=== PATIENT | female | born 1980 | race Caucasian/White ===

== ENCOUNTER 2019-07-09 10:53 | Outpatient (CLI) | payer OTHER, SELFPAY ==
[2019-07-09 13:37] LABS: Thyroid Stimulating Hormone 4.97 uIU/mL (0.36-3.74)
== END 2019-07-09 10:54 | disposition home or self-care (01) ==
LOC: CHSLAB 11:02
PROVIDERS: PCP Nurse Practitioner Family
DX: E89.0 Postprocedural hypothyroidism (principal); C73 Malignant neoplasm of thyroid gland
CPT/HCPCS: 36415; 84432; 84443; 86800

== ENCOUNTER 2019-11-22 13:51 | Outpatient (CLI) | payer OTHER, SELFPAY ==
--- NOTE | ~2019-11-22 | XR_ITS ---
XR foot LT 2V DATE: 11/22/2019 14:23 INDICATION: Left foot pain following injury 2 weeks ago TECHNIQUE: AP and lateral views COMPARISON: None FINDINGS: There is plantar and posterior calcaneal enthesopathy. No fracture, dislocation, periosteal reaction or bone destruction. Mild osteoarthritis at the first metatarsophalangeal joint. IMPRESSION: Calcaneal enthesopathy Mild osteoarthritis at first metatarsophalangeal joint Reviewed, dictated and finalized at location B.
[2019-11-22 14:09] LABS: Basophils Absolute Auto 0.04 K/mm3 (0.00-0.10); Basophils Percent Auto 0.3 % (0.0-1.0); Eosinophils Absolute Auto 0.42 K/mm3 (0.02-0.50); Eosinophils Percent Auto 3.3 % (1.0-6.0); Hematocrit 35.1 % (35.0-49.0); Hemoglobin 11.3 g/dL (12.0-15.0); Immature Granulocyte Absolute 0.05 K/mm3 (0.00-0.00); Immature Granulocyte Percent A 0.4 % (0.0-0.0); Lymphocytes Absolute Auto 1.52 K/mm3 (1.10-4.50); Lymphocytes Percent Auto 11.8 % (18.0-42.0); Mean Corpuscular HGB Conc 32.2 g/dL (32.0-36.0); Mean Corpuscular Volume 83.8 fL (78.0-102.0); Mean Platelet Volume 10.7 fl (9.2-11.8); Monocytes Absolute Auto 0.78 K/mm3 (0.10-0.90); Monocytes Percent Auto 6.1 % (2.0-11.0); Neutrophils Percent Auto 78.1 % (50.0-70.0); Platelet Count Result 286 K/mm3 (150-420); Red Blood Count 4.19 M/mm3 (4.20-5.40); White Blood Count 12.8 K/mm3 (4.8-10.8)
[2019-11-22 15:36] LABS: Alanine Aminotransferase 24 U/L (14-59); Albumin Level 3.8 g/dL (3.4-5.0); Alkaline Phosphatase 63 U/L (46-116); Anion Gap 14.1 mmol/L (7-16); Bilirubin,Total 0.2 mg/dL (0.00-1.00); Blood Urea Nitrogen 12 mg/dL (7-18); Calcium 8.5 mg/dL (8.5-10.1); Carbon Dioxide 25 mmol/L (21-32); Chloride 104 mmol/L (98-108); Cholesterol 191 mg/dL (0-200); Estimated Glomerular Filt Rate > 60; Glucose 103 mg/dL (70-99); HDL Direct 71 mg/dL (40-60); LDL Cholesterol Calculated 98 mg/dL (<130); Osmolality Calculated 287 mOsm/kg (285-295); Potassium 4.1 mmol/L (3.5-5.1); Sodium 139 mmol/L (136-145); Thyroid Stimulating Hormone 0.18 uIU/mL (0.36-3.74); Total Protein 7.4 g/dL (6.4-8.2); Triglycerides 110 mg/dL (0-150)
[2019-11-22 16:24] LABS: Aspartate Amino Transferase 19 U/L (15-37); Vitamin B12 344 pg/mL (193-986)
[2019-11-24 21:22] LABS: Vitamin D 25 Hydroxy 24 ng/mL (30-100)
[2019-11-24 21:42] LABS: Gliadin AB, IgG 3 Units (<20); Reticulin IgA Negative (Negative); TTG IGA AB 1 U/mL (<4)
[2019-11-26 05:34] LABS: Thyroglobulin <0.1 ng/mL (2.8-40.9); Thyroglobulin Antibodies <1 IU/mL (<=1)
== END 2019-11-22 13:52 | disposition home or self-care (01) ==
PROVIDERS: PCP Nurse Practitioner Family; Visit Provider Nurse Practitioner Family
DX: Z00.00 Encounter for general adult medical examination without abnormal findings (principal); R53.82 Chronic fatigue, unspecified; E89.0 Postprocedural hypothyroidism; C73 Malignant neoplasm of thyroid gland; M79.672 Pain in left foot
CPT/HCPCS: 36415; 73620; 80053; 80061; 82306; 82607; 83516; 84432; 84443; 85025; 86255; 86800

== ENCOUNTER 2020-07-10 13:40 | Outpatient (CLI) | payer OTHER, SELFPAY ==
--- NOTE | ~2020-07-10 | US_ITS ---
EXAMINATION: US pelvic complete w TV EXAM DATE: 07/10/2020 14:34 INDICATION: Pelvic and perineal pain. TECHNIQUE: Pelvic transabdominal and transvaginal sonogram was performed. There are multiple graysca le and Doppler images available for interpretation. There is no prior study for comparison. FINDINGS: Uterus measures 7.2 x 4.2 x 5.7 cm, is anteverted and morphologically normal. Endometrial stripe measures 9 mm, within normal limits. There are nabothian cysts. There is no free pelvic flu id. Right adnexa: The ovary measures 5.7 x 6.9 x 5.2 cm cm, with a cystic region measuring 4 x 6 cm. Ovar irving vascular flow confirmed. Left adnexa: The ovary measures 4.2 x 5.3 x 3.4 cm, with a cystic region measuring 3 x 4 cm. Ovarian vascular flow confirmed. IMPRESSION: 1. Right ovarian 6 cm lesion, left ovarian 4 cm lesion, physiologic or hemorrhagic cysts most likely . Consider 6 week follow-up pelvic sonogram. 2. No ovarian torsion. Reviewed, dictated and finalized at location B. SPREADER IMPRESSION: 1. Right ovarian 6 cm lesion, left ovarian 4 cm lesion, physiologic or hemorrh agic cysts most likely. Consider 6 week follow-up pelvic sonogram. 2. No ovarian torsion.
== END 2020-07-10 13:41 | disposition home or self-care (01) ==
PROVIDERS: PCP Nurse Practitioner Family; Visit Provider Nurse Practitioner Family
DX: R10.2 Pelvic and perineal pain (principal)
CPT/HCPCS: 76830; 76856

== ENCOUNTER 2020-08-21 08:05 | Outpatient (CLI) | payer OTHER, SELFPAY ==
--- NOTE | ~2020-08-21 | US_ITS ---
EXAMINATION: US pelvic complete w TV DATE: 08/21/2020 08:35 INDICATION: Ovarian cyst TECHNIQUE: Multiple transabdominal and endovaginal sonographic images of the pelvis were obtained. COMPARISON: 07/10/2020 FINDINGS: The uterus measures 8.0 x 4.6 x 4.9 cm. The endometrial complex measures 6 mm in thickness. 7 mm ane choic nabothian cyst at the cervix. The right ovary measures 4.7 x 2.3 x 3.3 cm. There are a couple c ysts in the right ovary which are significantly smaller than on the prior study including a 2.6 cm an echoic cyst and a second smaller 1.8 cm hypoechoic cyst. The left ovary measures 2.6 x 1.1 x 1.8 cm. There is normal vascular flow in the ovaries. There is no free fluid in the pelvis. IMPRESSION: 1. A couple right ovarian cysts which are significantly smaller than on the earlier study, the larges t currently measuring 2.6 cm. The smaller measuring 1.8 cm appears hypoechoic suggesting a hemorrhagi c cyst. Reviewed, dictated and finalized at location B. IMPRESSION: 1. A couple right ovarian cysts which are significantly smaller than on the ear lier study, the largest currently measuring 2.6 cm. The smaller measuring 1.8 c m appears hypoechoic suggesting a hemorrhagic cyst.
== END 2020-08-21 08:06 | disposition home or self-care (01) ==
LOC: CHSIMG 08:07
PROVIDERS: PCP Nurse Practitioner Family; Visit Provider Nurse Practitioner Family
DX: N83.202 Unspecified ovarian cyst, left side (principal); N83.201 Unspecified ovarian cyst, right side
CPT/HCPCS: 76830; 76856

== ENCOUNTER 2023-10-06 19:29 | Emergency (ER) | payer OTHER, SELFPAY ==
--- NOTE | ~2023-10-06 | XR_ITS ---
EXAMINATION: XR foot RT min 3V DATE: 10/06/2023 19:45 INDICATION: Left foot bruising post trauma TECHNIQUE: Dorsoplantar, two oblique and lateral views of the left foot were obtained. COMPARISON: None. FINDINGS: Nondisplaced intra-articular fracture at the base of the left fourth proximal phalanx. No fracture ga p or incongruity at the proximal articular surface. Alignment remains essentially anatomic. No other fractures identified. Mild polyarticular osteoarthritis at the first metatarsophalangeal and a few ta rsometatarsal and interphalangeal joints. Moderate-sized Achilles and plantar calcaneal spurs. IMPRESSION: 1. Nondisplaced intra-articular fracture at the base of the left fourth proximal phalanx. Reviewed, dictated and finalized at location A. IMPRESSION: 1. Nondisplaced intra-articular fracture at the base of the left fourth proxima l phalanx.
[2023-10-06 19:37] VITALS: BP 142/95; PULSE 88; RESP 18; TEMP 37; O2SAT 100
--- NOTE | 2023-10-06 19:40 | ED.LOWEXIN ---
HPI - Extremity Injury (Lower) General Chief Complaint: Extremity Injury, Lower Stated Complaint: Injured Left Foot Source: patient and RN notes reviewed Mode of arrival: ambulatory Limitations: no limitations History of Present Illness HPI Narrative: Patient is a 43-year-old female who presents to the [facility] with complaints of left foot pain. Patient states that she was in [place] last night when she accidentally smacked her foot into a wooden bed frame. There is notable swelling and bruising to the left foot, expression early near the 4th metatarsal. She states that pain is exacerbated with bearing weight and ambulation. She is neurovascularly intact distally. Sensation is intact and she denies numbness. Related Data Home Medications Medication Instructions Recorded Confirmed cholecalciferol (vitamin D3) 25 25 mcg PO DAILY 08/08/21 10/06/23 mcg (1,000 unit) capsule fluticasone 100 mcg-salmeterol 50 100 inh inhalation DAILY 10/06/23 10/06/23 mcg/dose blistr powdr for inhalation (Tabby Holley) norethindrone acetate 1.5 1 tablet PO DAILY 10/06/23 10/06/23 mg-ethinyl estradiol 30 mcg tablet (Andreia) Allergies Allergy/AdvReac Type Severity Reaction Status Date / Time No Known Allergies Allergy Verified 10/06/23 19:46 Review of Systems Review of Systems: CONSTITUTIONAL: Denies fever, chills, or sweats. EYES: Denies visual changes, redness, or discharge. ENT: Denies otalgia and sore throat CARDIOVASCULAR: Denies chest pain, palpitations, or edema. RESPIRATORY: Denies cough or dyspnea. GASTROINTESTINAL: Denies abdominal pain, nausea, vomiting, or diarrhea. GENITOURINARY: Denies dysuria or hematuria. SKIN: Denies rash or itching. MUSCULOSKELETAL: Denies back pain or myalgia. Left foot pain and swelling. NEUROLOGIC: Denies headache, numbness, or weakness. Pertinent positives per HPI. [facility] [place] Past Medical History Medical History Asthma Encounter for Routine Gynecological Examination GERD (gastroesophageal reflux disease) History of anemia Screening mammogram, encounter for Seasonal allergies Thyroid cancer 2018 Surgical History Surgical History History of section x 3 History of total thyroidectomy [place] teeth removed Family History Family History Grandparent Diabetes mellitus, Onset Age: 71 Carcinoma of colon, Onset Age: 70 Hypertension Heart disease Cerebrovascular accident Thyroid disorder Breast cancer Kidney mass Father Malignant neoplasm of prostate from cancer Other Carcinoma of colon Social History Social History Smoking status: Never smoker Second hand tobacco smoke exposure: No Alcohol intake: current Alcohol use details: Rarely Substance use: never Substance use type: does not use Lack of Transportation: No Lack of Food: Never True Concerned About Future Housing: No Difficulty Paying Gas/Electric Bills: No Difficulty Paying for Meds: No Currently Unemployed: No Difficulty w/ Childcare or Family Care: No Living arrangements: with family Occupation/Education: occupation Gender identity (if verbalized by the patient): Female Sexual Orientation (if Verbalized by the Patient): Straight or Heterosexual Comments At the time of my signature, I reviewed and agree with the nursing past medical, surgical, social, and family history. There is no relevant family history pertinent to the patient complaint. Exam Narrative: GENERAL: This is a well-nourished, well-developed patient, in no apparent distress. HEAD: normocephalic, atraumatic. EYES: PERRL. Sclera clear/white. Vision is grossly intact. EARS: External ears normal, auditory canals clear and without d
== END 2023-10-06 20:03 | disposition home or self-care (01) ==
PROVIDERS: Emergency Provider Nurse Practitioner
DX: S92.515A Nondisplaced fracture of proximal phalanx of left lesser toe(s), initial encounter for closed fracture (principal); W22.03XA Walked into furniture, initial encounter; J45.909 Unspecified asthma, uncomplicated; K21.9 Gastro-esophageal reflux disease without esophagitis; E89.0 Postprocedural hypothyroidism; Z85.850 Personal history of malignant neoplasm of thyroid
CPT/HCPCS: 73630; 99214; G0463

== ENCOUNTER 2024-02-21 13:53 | Emergency (ER) | payer OTHER, SELFPAY ==
[2024-02-21 14:36] VITALS: BP 137/92; PULSE 78; RESP 16; TEMP 36.3; O2SAT 100
--- NOTE | 2024-02-21 14:54 | ED.URI ---
HPI - URI/Sore Throat General Chief Complaint: Upper Respiratory Infection Stated Complaint: cough,shortness of breath Time Seen by Provider: 02/21/24 14:54 Source: patient, RN notes reviewed and old records reviewed Mode of arrival: ambulatory Limitations: no limitations History of Present Illness HPI Narrative: 43-year-old female to Express Care with complaint of productive cough, headache, sinus congestion, shortness of breath with activity. Patient states that she had similar symptoms 3 months ago that started to resolve, including runny nose and sore throat. Patient sources history of asthma and thyroid cancer. Patient denies difficulty swallowing, difficulty breathing, chest pain, fever. patient able to tolerate fluids by mouth. Patient returns today on comfortably in exam room, appears tired and acutely ill. Respirations even and nonlabored. Patient in no acute distress. Related Data Home Medications Medication Instructions Recorded Confirmed cholecalciferol (vitamin D3) 25 25 mcg PO DAILY 08/08/21 02/21/24 mcg (1,000 unit) capsule Allergies Allergy/AdvReac Type Severity Reaction Status Date / Time No Known Allergies Allergy Verified 02/21/24 15:28 Review of Systems Review of Systems: All systems reviewed & are unremarkable except as noted in HPI and below Constitutional: Constitutional: Reports as per HPI and Reports headache(s) Eyes: Eyes: Reports no additional eye complaints ENT: Reports as per HPI and Reports nasal congestion Cardiovascular: Cardiovascular: Reports no additional cardiovascular complaints, Denies chest pain and Denies dyspnea Respiratory: Respiratory: Reports as per HPI, Reports cough and Reports dyspnea on exertion Musculoskeletal: Musculoskeletal: Reports no additional musculoskeletal complaints Neurologic: Reports system reviewed and no additional complaints, except as documented Psychiatric: Psychiatric: Reports no additional psychiatric complaints [facility] Past Medical History Medical History Asthma Encounter for Routine Gynecological Examination GERD (gastroesophageal reflux disease) History of anemia Screening mammogram, encounter for Seasonal allergies Thyroid cancer 2018 Surgical History Surgical History History of section x 3 History of total thyroidectomy [place] teeth removed Family History Family History Grandparent Diabetes mellitus, Onset Age: 71 Carcinoma of colon, Onset Age: 70 Hypertension Heart disease Cerebrovascular accident Thyroid disorder Breast cancer Kidney mass Father Malignant neoplasm of prostate from cancer Other Carcinoma of colon Social History Social History Smoking status: Never smoker Second hand tobacco smoke exposure: No Alcohol intake: current Alcohol use details: Rarely Substance use: never Substance use type: does not use Lack of Transportation: No Lack of Food: Never True Concerned About Future Housing: No Difficulty Paying Gas/Electric Bills: No Difficulty Paying for Meds: No Currently Unemployed: No Difficulty w/ Childcare or Family Care: No Living arrangements: with family Occupation/Education: occupation Gender identity (if verbalized by the patient): Female Sexual Orientation (if Verbalized by the Patient): Straight or Heterosexual Comments At the time of my signature, I reviewed and agree with the nursing past medical, surgical, social, and family history. There is no relevant family history pertinent to the patient complaint. Exam Const: General: cooperative, no acute distress, well developed, alert, ill appearing acutely, tired appearing, uncomfortable, well groomed and well norris
[2024-02-21 15:21] LABS: EDINFLUASCREEN Negative (Negative); EDINFLUBSCREEN Negative (Negative)
== END 2024-02-21 15:31 | disposition home or self-care (01) ==
PROVIDERS: Emergency Provider Nurse Practitioner Family; PCP Nurse Practitioner Family
DX: R05.9 Cough, unspecified (principal); J32.9 Chronic sinusitis, unspecified; J45.909 Unspecified asthma, uncomplicated; K21.9 Gastro-esophageal reflux disease without esophagitis; Z85.850 Personal history of malignant neoplasm of thyroid; E89.0 Postprocedural hypothyroidism; Z20.822 Contact with and (suspected) exposure to COVID-19
CPT/HCPCS: 87635; 87804; 99213; G0463

== ENCOUNTER 2024-07-15 17:40 | Emergency (ER) | payer OTHER, SELFPAY ==
[2024-07-15 18:03] VITALS: BP 125/80; PULSE 85; RESP 16; TEMP 37.1; O2SAT 100
[2024-07-15 18:16] LABS: EDCOVIDSCREEN Negative (Negative); EDINFLUASCREEN Negative (Negative); EDINFLUBSCREEN Negative (Negative); EDSTREPNEGPOS1 Negative (Negative)
--- NOTE | 2024-07-15 18:21 | ED.URI ---
HPI - URI/Sore Throat General Chief Complaint: Upper Respiratory Infection Stated Complaint: SORE THROAT/HEADACHE Time Seen by Provider: 07/15/24 18:21 Source: patient, RN notes reviewed and old records reviewed Mode of arrival: ambulatory Limitations: no limitations History of Present Illness HPI Narrative: 44 year old female presents to [facility] care with comlaints of nausea vomiting and diarrhea starting on Friday and yesterday starting with headache sore throat, left jaw pain with pain to her left ear. Patient reports that she has had fever oce during the past few day s and has been taking Ibuprofen for her discomfort. Patient states she has had banana and toast twice in the past few days, is drinking water. MD elicited complaint: fever (x1), sore throat and other (left jaw pain to left ear, headache, NVD) Onset (ago): day(s) (4 days) Pain scale (0-10): 8 Able to tolerate fluids by mouth: Yes Treatments prior to arrival: ibuprofen Related Data Home Medications ?Medication ?Instructions ?Recorded ?Confirmed ?Last Taken ?Type cholecalciferol (vitamin D3) 25 25 mcg PO DAILY 08/08/21 07/15/24 Unknown History mcg (1,000 unit) capsule Allergies Allergy/AdvReac Type Severity Reaction Status Date / Time No Known Allergies Allergy Verified 07/15/24 17:59 Review of Systems Review of Systems: CONSTITUTIONAL: reports malaise, chills, sweats, or fever. EYES: Denies visual changes, redness, or discharge. ENT: Reports rhinorrhea, congestion, sinus pain, left otalgia and sore throat. CARDIOVASCULAR: Denies chest pain, palpitations, or edema. RESPIRATORY: Reports cough.? Denies dyspnea. GASTROINTESTINAL: Denies abdominal pain, positive for nausea, vomiting, diarrhea SKIN: Denies rash or itching. MUSCULOSKELETAL: Denies myalgia. NEUROLOGIC: Positive for headache. All systems reviewed & are unremarkable except as noted in HPI and below PMFSH Past Medical History Medical History Screening mammogram, encounter for Encounter for Routine Gynecological Examination History of anemia Seasonal allergies Thyroid cancer 2018 GERD (gastroesophageal reflux disease) Asthma Surgical History Surgical History [place] teeth removed History of total thyroidectomy History of section x 3 Family History Family History Grandparent Diabetes mellitus, Onset Age: 71 Carcinoma of colon, Onset Age: 70 Hypertension Heart disease Cerebrovascular accident Thyroid disorder Breast cancer Kidney mass Father Malignant neoplasm of prostate from cancer Other Carcinoma of colon Social History Social History Smoking status: Never smoker Second hand tobacco smoke exposure: No Alcohol intake: current Alcohol use details: Rarely Substance use: never Substance use type: does not use Lack of Transportation: No Lack of Food: Never True Concerned About Future Housing: No Difficulty Paying Gas/Electric Bills: No Difficulty Paying for Meds: No Currently Unemployed: No Difficulty w/ Childcare or Family Care: No Living arrangements: with family Occupation/Education: occupation Gender identity (if verbalized by the patient): Female Sexual Orientation (if Verbalized by the Patient): Straight or Heterosexual Comments At time of signature, agree with nursing past medical, surgical, social and family history. There is no relevant family history pertinent to the presenting complaint Exam Narrative: GENERAL: Ill appearing, well-nourished, and in no acute distress. HEAD: Normocephalic EYES: PERRLA, conjunctivae clear ENT: Nares clear, turbinates edematous and erythematous, clear discharge. Mucous membranes moist. TM pearly snow with dull light reflex bilaterally; no tragal tenderness. Oropharynx erythematous without lesions. Tonsils red enlarged and throat without exudate, no drooling, no hoarseness, no trismus, uvula midline.post nasal drainage noted NECK: Supple. lymphadenopathy CHEST: Clear to auscultation, breath sounds equal. No wheezing, rhonchi, rales, or stridor. No respiratory distress, speaks in full sentences SAO2 100% on room air. HEART: Regular rate and rhythm. No murmur heard. SKIN: Warm, dry, no rash. NEURO: Alert and oriented x3. PSYCH: Normal mood and affect Course Course Emergency Course: Patient is aware of diagnosis, understands and agrees to treatment plan.? Anticipatory guidance given.? Patient agrees to follow-up as directed and is aware of reasons to seek care at the emergency department. Portions of this record may have been created with voice recognition software Level of Care: Express Care Visit Vital Signs Vital signs: Vital Signs Temperature 37.1 C 07/15/24 18:03 Pulse Rate 85 07/15/24 18:03 Respiratory Rate 16 07/15/24 18:03 Blood Pressure 125/80 07/15/24 18:03 Pulse Oximetry 100 07/15/24 18:03 Temperature 37.1 C 07/15/24 18:03 Pulse Rate 85 07/15/24 18:03 Respiratory Rate 16 07/15/24 18:03 Blood Pressure 125/80 07/15/24 18:03 Pulse Oximetry 100 07/15/24 18:03 Reviewed MDM - URI/Sore Throat MDM Narrative Medical decision making narrative: Differential diagnosis considered: Smyth virus, strep pharyngitis, allergic rhinitis, upper respiratory tract infection, sinusitis, rhinosinusitis, nasopharyngitis. viral pharyngitis, otitis media, otitis externa, pneumonia, bronchitis, viral cough syndrome, viral syndrome, and influenza.? Exam findings show no acute concerns or changes; patient is non-toxic appearing and is in no distress.? Patient is appropriate for outpatient treatment and follow-up. Differential Diagnosis Differential diagnosis: Likely upper respiratory infection, viral infection, influenza, pharyngitis and other (strep pharyngitis, COVID, vomiting and diarrhea) Medical Records Attestation: I reviewed the patient's medical records. Lab Data Attestation: I reviewed the patient's lab results. Lab results narrative: Influenza A negative Influenza B negative, COVID antigen negative, strep screen negative, culture sent Labs: Lab Results 07/15/24 Range/Units 18:14 POC Influenza A Ag Negative (Negative) POC Influenza B Ag Negative (Negative) POC SARS CoV-2 Ag Negative (Negative) POC Grp A Strep Screen Negative (Negative) reviewed Critical Care Time Critical Care Time Critical Care Time: No Discharge Plan Discharge Clinical Impression: Nausea, vomiting, and diarrhea Acute pharyngitis Qualifiers: Pharyngitis/tonsillitis etiology: unspecified etiology Qualified Code(s): J02.9 - Acute pharyngitis, unspecified Patient Disposition: Home, Self-Care Condition: Stable Instructions: Dehydration (ED), Pharyngitis (ED), Gastroenteritis (ED) Additional Instructions: Clear liquids for the next 8-10 hours, then advance to a bland diet as tolerated A bland diet can consist of--BRAT diet which is bananas, rice, applesauce, and toast Avoid fried, greasy, fatty, fried foods Avoid caffeine, nicotine, and alcohol Return to your regular diet in the next 3-4 days Medication as directed for nausea and vomiting Sometimes ibuprofen/Aleve can cause increased stomach upset [id number] Imodium if develop diarrhea Follow-up with her PCP if continued problems or uncontrolled pain Throw away your current toothbrush and begin using a new toothbrush in 48 hours in order to prevent re-infection. Sanitize all reusable water bottles . Do not share items with others. Salt water gargles may alleviate some of the throat discomfort. Your strep test today was negative. A throat culture will be sent to the laboratory for further testing. If test is negative you may stop Antibiotic. call office on Friday after noon at [phone] Patient Language: Lithuanian Prescriptions: New ondansetron 4 mg tablet,disintegrating 4 mg PO Q6H PRN (Reason: nausea and vomiting) Qty: 20 0RF amoxicillin 500 mg capsule 500 mg PO Q12H Qty: 20 0RF dicyclomine 20 mg tablet 20 mg PO TID Qty: 20 0RF No Action cholecalciferol (vitamin D3) 25 mcg (1,000 unit) capsule 25 mcg PO DAILY levothyroxine [Synthroid] 150 mcg tablet See Rx Instructions .ROUTE .COMPLEX Qty: 30 0RF Dose Instruction: TAKE 1 TABLET BY MOUTH EVERY DAY Rx Instructions: TAKE 1 TABLET BY MOUTH EVERY DAY Do not substitute fluticasone propion-salmeterol [Wixela Inhub] 100-50 mcg/dose blister with device See Rx Instructions .ROUTE .COMPLEX Qty: 180 0RF Dose Instruction: USE 1 INHALATION BY MOUTH TWICE DAILY Rx Instructions: USE 1 INHALATION BY MOUTH TWICE DAILY Slynd 4 mg (28) tablet 4 mg PO DAILY Qty: 84 1RF Follow-up/Referrals: Atif,Juan Lopez Jr., MD [Primary Care Provider] - Time of Disposition: 18:38 Quality [place] Coma Scale Eyes: Open Verbal: Oriented and Alert Motor: Follows Commands Ez Coma Total Score: 15
== END 2024-07-15 18:45 | disposition home or self-care (01) ==
PROVIDERS: Emergency Provider Registered Nurse; PCP Hospitalist
DX: R11.2 Nausea with vomiting, unspecified (principal); R19.7 Diarrhea, unspecified; J02.9 Acute pharyngitis, unspecified; Z20.822 Contact with and (suspected) exposure to COVID-19; J45.909 Unspecified asthma, uncomplicated; K21.9 Gastro-esophageal reflux disease without esophagitis; E89.0 Postprocedural hypothyroidism; Z85.850 Personal history of malignant neoplasm of thyroid
CPT/HCPCS: 87081; 87426; 87804; 87880; 99213; G0463

== ENCOUNTER 2025-04-05 18:16 | Emergency (ER) | payer OTHER, SELFPAY ==
[2025-04-05 18:16] VITALS: BP 130/97; PULSE 84; RESP 17; TEMP 36.4; O2SAT 97
--- NOTE | 2025-04-05 18:35 | ED.GENADULT ---
HPI - General Adult General Chief complaint: Upper Respiratory Infection Stated complaint: CONGESTION/ SINUS HEADACHE Time Seen by Provider: 04/05/25 18:20 History of Present Illness HPI narrative: A 45-year-old white female was vacationing in [place], flew home a week ago, and ever since then has had headache, sinus congestion, pressure sensation, and then some of muscle aches, malaise, decreased appetite, and several episodes of nausea and vomiting. Her headache has been as bad as 9.5/10, currently is a 9, has some photophobia, he used to have migraines a long time ago but has not had them in many years. Related Data Home Medications ?Medication ?Instructions ?Recorded ?Confirmed ?Last Taken ?Type cholecalciferol (vitamin D3) 25 25 mcg PO DAILY 08/08/21 07/15/24 Unknown History mcg (1,000 unit) capsule Allergies Allergy/AdvReac Type Severity Reaction Status Date / Time No Known Allergies Allergy Verified 04/05/25 18:35 Review of Systems Review of Systems: ROS negative except as in HPI PMFSH Past Medical History Medical History Screening mammogram, encounter for Encounter for Routine Gynecological Examination History of anemia Seasonal allergies Thyroid cancer 2018 GERD (gastroesophageal reflux disease) Asthma Surgical History Surgical History [place] teeth removed History of total thyroidectomy History of section x 3 Family History Family History Grandparent Diabetes mellitus, Onset Age: 71 Carcinoma of colon, Onset Age: 70 Hypertension Heart disease Cerebrovascular accident Thyroid disorder Breast cancer Kidney mass Father Malignant neoplasm of prostate from cancer Other Carcinoma of colon Social History Social History Smoking status: Never smoker Second hand tobacco smoke exposure: No Alcohol intake: current Alcohol use details: Rarely Substance use: never Substance use type: does not use Lack of Transportation: No Lack of Food: Never True Concerned About Future Housing: No Difficulty Paying Gas/Electric Bills: No Difficulty Paying for Meds: No Currently Unemployed: No Difficulty w/ Childcare or Family Care: No Living arrangements: with family Occupation/Education: occupation Gender identity (if verbalized by the patient): Female Sexual Orientation (if Verbalized by the Patient): Straight or Heterosexual Exam Narrative: pleasant, well-appearing, well oriented, articulate, no acute distress Const: General: cooperative, healthy appearing, comfortable, no acute distress, well developed, alert, awake and Physically active Orientation/consciousness: patient oriented x3 HENMT: Head: normal to inspection, normocephalic and atraumatic Ears: hearing grossly normal bilaterally and external ears normal Face/Nose/Sinus: Normal external nose present, Normal nares present, Normal nasal mucous membranes and turbinates present and normal facial exam Face and sinus: normal facial exam Mouth: Yes Normal oral and palatal mucosa present, Yes lip normal, Yes tongue normal, Yes oropharynx normal and Yes moist mucous membranes Teeth and gingiva: dentition normal Throat: posterior oropharynx normal and tonsils normal ( erythematous) Eyes: General: appearance normal, both eyes and all related structures Alignment and Position: alignment normal and position normal Periorbital: periorbital findings normal Eyelids: eyelids normal Conjunctivae: conjunctivae normal Sclera: sclerae normal Cornea: corneas normal Pupils: Equal, round and reactive pupils present EOM: EOMs intact bilaterally Neck: Neck: normal visual inspection, full ROM and no lymphadenopathy Chest: Chest palpation & inspection: normal inspection of the chest Resp: Effort & Inspection: normal respiratory effort, able to speak in complete sentences, no audible wheezes, no respiratory distress and no use of accessory muscles Auscultation: clear to auscultation bilaterally Cardio: Jugular venous distension: no JVD Rate: regular rate Rhythm: regular rhythm GI: Inspection: normal to inspection GI Palp: No abdominal tenderness, No Tenderness to palpation present (GI), No Guarding due to palpation present (GI), No No hepatosplenomegaly present, No Palpable mass present and No Rebound tenderness present Skin: General skin exam: normal color, no rashes or lesions noted, elasticity normal and turgor normal Neuro: General: patient oriented x3, gait normal, tone normal and moves all extremities Cranial nerves: Yes CN's II-XII intact bilaterally, Yes Equal, round and reactive pupils present and Yes Bilaterally intact EOM present Speech: normal speech Motor exam (neuro): 5/5 motor strength present throughout and Normal motor muscle tone present throughout Sensory Exam: normal sensation Extrem: General: normal to inspection, normal exam except as noted and no pedal edema Psych: Appearance: grossly normal and well kempt Mental Status: mental status grossly normal Speech and movement: Normal speech and movement present Affect: normal affect Attitude: cooperative Thought process: Normal thought process present Course Course Emergency Course: Differential diagnosis includes but is not limited to viral syndrome, upper respiratory infection, COVID, influenza, migraine headache, tension headache, less likely sinusitis as she is not having any sinus drainage. Will treat with IV Toradol, Compazine, Benadryl, and a L of LR COVID, influenza are negative 7:50 p.m. Patient has near total relief of her headache, likely migraine triggered by viral syndrome, will treat patient symptomaticly at home w naproxen, compazine, benadryl w f/u w her pcp Medical decision making complexity and risk low to moderate Vital Signs Vital signs: Vital Signs Temperature 36.4 C L 04/05/25 18:16 Pulse Rate 84 04/05/25 18:16 Respiratory Rate 17 04/05/25 18:16 Blood Pressure 130/97 H 04/05/25 18:16 Pulse Oximetry 97 04/05/25 18:16 Oxygen Delivery Room Air 04/05/25 18:16 Temperature 36.4 C L 04/05/25 18:16 Pulse Rate 67 04/05/25 20:39 Respiratory Rate 18 04/05/25 20:39 Blood Pressure 131/90 04/05/25 20:39 Pulse Oximetry 97 04/05/25 20:39 Oxygen Delivery Room Air 04/05/25 20:39 Medical Decision Making Vital Signs Vital Signs: Vital Signs Temperature 36.4 C L 04/05/25 18:16 Pulse Rate 84 04/05/25 18:16 Respiratory Rate 17 04/05/25 18:16 Blood Pressure 130/97 H 04/05/25 18:16 Pulse Oximetry 97 04/05/25 18:16 Oxygen Delivery Room Air 04/05/25 18:16 Temperature 36.4 C L 04/05/25 18:16 Pulse Rate 67 04/05/25 20:39 Respiratory Rate 18 04/05/25 20:39 Blood Pressure 131/90 04/05/25 20:39 Pulse Oximetry 97 04/05/25 20:39 Oxygen Delivery Room Air 04/05/25 20:39 Lab Data Labs: Lab Results 04/05/25 Range/Units 18:56 Influenza A (RT-PCR) Negative (Negative) Influenza B (RT-PCR) Negative (Negative) SARS-CoV-2 RNA (RT-PCR) Negative (Negative) Discharge Plan Discharge Clinical Impression: Viral infection, Headache, migraine Patient Disposition: Home Condition: Stable Instructions: Migraine Headache (ED), Viral Syndrome (ED) Additional Instructions: Continue hydrating at home Consistent rest at night Good nutrition Tylenol 650 mg q.6 as needed for discomfort, ibuprofen 600 mg Q 8 hours as needed for discomfort Compazine 10 mg q.6 hours as needed for headache. Take 25 mg of [id number] Benadryl with each Compazine. Follow up w Dr Srivastava in 1-2 weeks as needed Return to the emergency department if worsens Patient Language: Belgian Prescriptions: New prochlorperazine maleate [Compazine] 10 mg tablet 10 mg PO Q6H PRN (Reason: nausea and vomiting and or headache ) Qty: 30 0RF Rx Instructions: Take [id number]-eqdejni Benadryl 25 mg with each 10 mg tablet of prochlorperazine naproxen 500 mg tablet 500 mg PO BID PRN (Reason: pain) Qty: 60 0RF No Action ondansetron 4 mg tablet,disintegrating 4 mg PO Q6H PRN (Reason: nausea and vomiting) Qty: 20 0RF amoxicillin 500 mg capsule 500 mg PO Q12H Qty: 20 0RF dicyclomine 20 mg tablet 20 mg PO TID Qty: 20 0RF cholecalciferol (vitamin D3) 25 mcg (1,000 unit) capsule 25 mcg PO DAILY levothyroxine [Synthroid] 150 mcg tablet See Rx Instructions .ROUTE .COMPLEX Qty: 30 0RF Dose Instruction: TAKE 1 TABLET BY MOUTH EVERY DAY Rx Instructions: TAKE 1 TABLET BY MOUTH EVERY DAY Do not substitute fluticasone propion-salmeterol [Wixela Inhub] 100-50 mcg/dose blister with device See Rx Instructions .ROUTE .COMPLEX Qty: 180 0RF Dose Instruction: USE 1 INHALATION BY MOUTH TWICE DAILY Rx Instructions: USE 1 INHALATION BY MOUTH TWICE DAILY Slynd 4 mg (28) tablet 4 mg PO DAILY Qty: 84 1RF Follow-up/Referrals: Atif,Juan Lopez Jr., MD [Primary Care Provider, Unknown] Time of Disposition: 19:46
[2025-04-05 18:42] VITALS: O2SAT 97
[2025-04-05] MEDS: LACTATED RINGERS 1,000 ML 999 ML IV CONT (19:02)
[2025-04-05] MEDS: KETOROLAC 30 MG/ML VIAL (*BKC) IV PUSH (19:02)
[2025-04-05] MEDS: PROCHLORPERAZINE EDISYLATE 10 MG/2 ML VIAL IV PUSH (19:03)
[2025-04-05 19:50] LABS: Influenza A QL RT-PCR Negative (Negative); Influenza B QL RT-PCR Negative (Negative); SARS-CoV-2 RNA PCR Negative (Negative)
[2025-04-05 20:39] VITALS: BP 131/90; PULSE 67; RESP 18; O2SAT 97
--- OUTSIDE RECORDS SUMMARY | 2025-04-06 04:23 | XMS_ITS | Clinical Summary ---
Author Organization [place] [id number] [facility] Address [address] [place] [address] Care Team Providers Care Manufacturing Quality Manager Name Role Phone Trinity Bustillo RECORD CENTER SPECIALIST Unavailable [phone] Atif Sapp MD, Juan Lopez Primary Care Provide r Vipin Red MD Unavailable [phone] Allergies Active Allergy Reactions Criticality Noted Date Comments Pollen Extracts Itching Low 02/24/2024 Medications cetirizine (ZyrTEC) 10 mg tablet Take 1 tablet (10 mg total) by mouth daily 2 Active Advair Diskus 100-50 mcg/dose diskus inhaler USE 1 INHALATION BY MOUTH TWICE DAILY Active Andreia 1.5-30 mg-mcg tablet per tablet Take 1 tablet by mouth daily Active cholecalciferol (VITAMIN D-3) 2000 unit tablet Take 1 tablet (2,000 Units total) by mouth daily 1 Active levothyroxine (SYNTHROID) 150 mcg tablet TAKE 1 TABLET BY MOUTH MON-SAT, AND 2 TABLETS BY MOUTH ON SUN, TAKE ON AN EMPTY STOMACH 104 tablet 3 4 Active magnesium oxide 400 mg magnesium capsule Take by mouth daily as needed Active albuterol-budeson joseph 90-80 mcg/actuation HFA aerosol inhalerIndication s:Moderate persistent asthma with acute exacerbation Inhale 1 Inhalation every 6 (six) hours as needed (wheezing) 32.1 g 1 4 Active drospirenone, contraceptive, (Slynd) tablet tablet Take 1 each (4 mg total) by mouth daily Active multivitamin with minerals tablet Take 1 tablet by mouth daily Active fluticasone-umecl idin-vilanter (Trelegy Ellipta) 100-62.5-25 mcg inhalerIndication s:Moderate persistent asthma with acute exacerbation INHALE 1 PUFF BY MOUTH ONCE DAILY 120 each 5 Active Active Problems Problem Noted Date Diagnosed Date History of thyroid cancer 04/06/2024 Overview (04/06/2024): Worked in radiology for 20 years, noticed golf ball sized lesion in the neck and although biopsy negative, surgery pathology positive Assessment & Plan (04/06/2024 9:08 AM MECHANICAL DRAWING TEACHER): Monitor TSH levels Follows with endo Moderate persistent asthma with acute exacerbati on 04/06/2024 Preventative health care 04/06/2024 Assessment & Plan (04/06/2024 9:08 AM MECHANICAL DRAWING TEACHER): Reviewed labs, screenings and vaccines Post-surgical hypothyroidism 02/03/2023 Assessment & Plan (04/06/2024 9:08 AM MECHANICAL DRAWING TEACHER): Follow with endo Continue levo at current dose Assessment & Plan (02/24/2024 6:47 PM CDT): Continue current levothyroxine dose. Will check thyroid function test and adjust levothyroxine dose accordingly. TSH goal lower normal Assessment & Plan (02/03/2023 2:41 PM CDT): Continue current levothyroxine dose. Will check thyroid function test and adjust levothyroxine dose accordingly. TSH goal lower normal Resolved Problems Problem Noted Date Diagnosed Date Resolved Date Thyroid cancer 02/03/2023 04/06/2024 Assessment & Plan (02/24/2024 6:47 PM CDT): No evidence of tumor recurrence on biochemical and radiological data so far Will plan follow-up with thyroid function test with a TSH goal lower normal. Biochemical evaluation with thyroid tumor markers. Continue USG screening Assessment & Plan (02/03/2023 2:41 PM CDT): No evidence of tumor recurrence on biochemical and radiological data so far followed by endocrinology locally Will plan follow-up with thyroid function test with a TSH goal lower normal. Biochemical evaluation with thyroid tumor markers. We will also obtain neck ultrasound for evaluation of the neck. If above are in acceptable range, will plan follow-up on yearly basis Thyroid nodule 07/03/2015 04/06/2024 Encounters Date Type Department Care Team Description 01/13/2025 10:30 AM CDT - 01/13/2025 11:00 AM CDT Surgery [facility] [address] [place] [address] Amos Campoverde MD COLON REMOVAL SNARE 01/13/2025 10:05 AM CDT Anesthesia Event [facility] [address] [place] [address] Emilia Wynn MD 01/13/2025 9:01 AM CDT - 01/13/2025 11:40 AM CDT Hospital Encounter [facility] [address] [place] [address] Amos Campoverde MD Family history of colon cancer requiring screening colonoscopy Discharge Disposition: Discharge to home or self care from Last 3 Months Immunizations Immunization Administration Dates Next Due Influenza, Unspecified 03/31/2024,03/19/2023 Pfizer SARS-CoV-2 Monovalent Vaccination (12+ Yrs) PURPLE 07/11/2020,06/20/2020 Surgical History Surgery Date Site/Laterality Comments SECTION 05/19/2008 - 05/18/2009 SECTION 05/19/2010 - 05/18/2011 SECTION 05/19/2013 - 05/18/2014 TOTAL THYROIDECTOMY 05/19/2017 - 05/18/2018 Medical History Medical History Date Comments Eye problems Allergies Asthma Arthritis Neck Thyroid cancer (HCC) 2018 Family History Medical History Relation Name Comments Cancer Father Prostate Hyperlipidemia Father Hypertension Father Prostate cancer Father Colon cancer Father's Brother Hypertension Mother Colon cancer Paternal Grandfather Relation Name Status Comments Father Father's Brother Mother Alive Paternal Grandfather Social History Tobacco Use Types Packs/Day Years Used Date Smoking Tobacco: Never Smokeless Tobacco: Never Tobacco Cessation:Counseling Given: Not Answered Alcohol Use Standard Drinks/Week Comments Yes 1 (1 standard drink = 0.6 oz pur e alcohol) PHQ-2 Answer Date Recorded PHQ-2 Total Score (If total score is 3 or more points, staff should administer the PHQ-9) 0 04/06/2024 AUDIT-C Answer Date Recorded Q1: How often do you have a drink containing alc ohol? 2-4 times a month 01/13/2025 Q2: How many drinks containi ng alcohol do you have on a typical day when you are drinking? 1 or 2 01/13/2025 Q3: How often do you have si x or more drinks on one occasion? Never 01/13/2025 Personal Safety Answer Date Recorded Have you ever been in or are you currently in a harmful physical or emotional relationship or is someone making you feel afraid or unsafe? Denies 01/13/2025 Comments Unknown Sex and Gender Information Value Date Recorded Sex Assigned at Not on file Legal Sex Female 6:54 AM MECHANICAL DRAWING TEACHER Gender Identity Not on file Sexual Orientation Not on file Last Filed Vital Signs Vital Sign [place] Time Taken Comments Blood Pressure 130/93 01/13/2025 11:25 AM CDT Pulse 68 01/13/2025 11:25 AM CDT Temperature 36 C (96.8 F) 01/13/2025 10:57 AM CDT Respiratory Rate 16 01/13/2025 11:25 AM CDT Oxygen Saturation 99% 01/13/2025 11:25 AM CDT Inhaled Oxygen Concentration - - Weight 72.6 kg (160 lb) 01/13/2025 9:15 AM CDT Height 160 cm (5' 3) 04/06/2024 8:18 AM MECHANICAL DRAWING TEACHER Body Mass Index 28.34 04/06/2024 8:18 AM MECHANICAL DRAWING TEACHER Plan of Treatment Health Maintenance Due Date Last Done Comments Hepatitis C Screening 1980 DTaP/Tdap/Td Vaccine (1 - Tdap) 1991 Hepatitis B Screening 1998 Pneumococcal vaccine <65 (1 of 2 - PCV) 1999 HPV Vaccines (1 - 3-dose SCD M series) 2007 Covid-19 Vaccine (3 - 2024-2 6 season) 2025 07/11/2020, 06/20/2020 Influenza Vaccine (#1) 2025 , 03/19/2023, 04/22/2014 Breast Cancer Screening-Mammogram 02/03/2025 02/04/2024, 03/19/2022, 11/08/2020, Additional history exists Depression Screening 04/06/2025 04/06/2024 Regular Well Visit/Exam 18-64 04/06/2025 04/06/2024 Cervical Cancer Screening 01/24/2026 01/24/2025, Colon Cancer Screening-Colonoscopy 01/13/2035 01/13/2025, 01/13/2025 Varicella Vaccines Discontinued Procedures Procedure Name Priority Date/Time Associated Diagnosis Comments HM PAP SMEAR Routine 01/24/2025 8:16 AM CDT SURGICAL PATHOLOGY Routine 01/13/2025 10 :26 AM CDT Family history of colon cancer requiring screening colonoscopy ENDO ADD ON COLON BIOPSY 01/13/2025 10:05 AM CDT screening hx family colon cancer COLON REMOVAL SNARE 01/13/2025 1 0:05 AM CDT screening hx family colon cancer COLONOSCOPY 01/13/2025 10:00 AM CDT HM COLONOSCOPY Routine 01/13/2025 9:56 AM CDT POCT HCG, URINE Routine 01/13/2025 9:27 AM CDT SCREENING MAMMOGRAM BILATERAL W GERARDO Schedule Routine, Read Routine (OP Routine) 02/04/2024 2:34 PM CDT Screening mammogram, encounter for from Last 3 Months or Most Recently Relevant to Health Maintenance Results * HM PAP SMEAR (01/24/2025 8:16 AM CDT) SCRIBED Pap test negative us Historical Provider HEALTH MAINTENANCE Final Result * Surgical pathology (01/13/2025 10:26 AM CDT) Tissue (Polyp(s), colon/colorectal, esophageal, gastric) 01/13/2025 10:26 AM CDT Comment:Hot Snare Tissue specimen (specimen) (Colon, Biopsy) 01/13/2025 10:35 AM CDT Comment:Cold biopsy Tissue specimen (specimen) (Colon, Biopsy) 01/13/2025 10:38 AM CDT Comment:Cold biopsy Tissue specimen (specimen) (Colon, Biopsy) 01/13/2025 10:43 AM CDT Comment:Cold Biopsy Narrative PATHOLOGY [facility] - 01/14/2025 2:43 PM CDT [facility] Department of Pathology [address] [place] [address] Note to Patients: This report may contain a detailed description of human tissue sent by a health care provider to the laboratory for pathologic evaluation. The content of this report is essential for diagnosis and may provide important critical findings. This information may be unfamiliar to patients to review without a medical professional present. It is advised that the patient review this report in the presence of a health care provider who can answer questions and explain the details. Final Report Patient Name: ROSALIND BHAKTA : 1980 (Age: 44) Gender: F Address: [address] [place] [address] Hospital #: [id number] Service: Surgery Location: Patient Type: [facility] OUTPATIENT Taken: 01/13/2025 Received: 01/13/2025 Accessioned: 01/13/2025 Reported: 01/14/2025 Physician(s): MD Juan Florez JR, MD Diagnosis: A. Colon, sigmoid, biopsy - Hyperplastic polyp B. Colon, ascending, biopsy - Tubular adenoma C. Colon, hepatic flexure, biopsy - Tubular adenoma D. Colon, transverse, biopsy - Tubular adenoma Danis Diallo M.D. Report Electronically Reviewed and Signed Out By Danis Diallo M.D. 01/14/2025 14:43:17 Specimen(s) Received: A: Sigmoid colon polyp B: Ascending colon polyp C: Hepatic flexure polyp D: Transverse colon polyp Microscopic Description: Unless gross-only is specified, the final diagnosis for each specimen is based on a microscopic examination of each tissue sample. [id number] Distribution Clinical History: The patient is a 44-year-old woman with a family history of colon cancer, that presents for screening. Operative procedure: Colonoscopy with biopsy. Gross Description Received in four formalin jars labeled with the patient's identifiers. A. Labeled sigmoid colon polyp and consists of a 0.5 cm hernandez-red tissue fragment admixed with debris. Entirely submitted. Labeled A1. Jar 0. B. Labeled ascending colon polyp and consists of a 0.6 cm hernandez-pink tissue fragment, which is entirely submitted. Labeled B1. Jar 0. C. Labeled hepatic flexure polyp and consists of a 0.3 cm hernandez-red tissue fragment, which is entirely submitted. Labeled C1. Jar 0. D. Labeled transverse colon polyp and consists of two hernandez-pink tissue fragments measuring 0.1 cm and 0.4 cm. Entirely submitted. Labeled D1. Jar 0. [facility]/01/13/2025 14:06 ROD Castillo, PA (ASCP) Microscopic slide review and interpretation for this case was performed at [facility], Department of Surgical Pathology, [address] [facility], [place] [id number], [address] # [id number] Amos Campoverde MD LAB PATHOLOGY ORDERAB LES Final Result PATHOLOGY [facility] * Colonoscopy (01/13/2025 10:00 AM CDT) Anatomical Region Laterality Modality Other Narrative Procedure Note Amos Campoverde MD - 01/13/2025 10:00 AM CDT [facility] GI ENDOSCOPY Patient Name: Rosalind Bhakta Procedure Date: 01/13/2025 10:00 AM Date of : 1980 Admit Type: Outpatient Age: 44 Gender: Female Attending MD: Amos Campoverde M.D., Room: [facility] ENDOSCOPY ROOM 04 Note Status: Finalized Procedure: Colonoscopy Indications: Screening for colon cancer: Family history of colorectal cancer in multiple 2nd degree relatives, Colon cancer screening in patient at increasedrisk: Family history of 1st-degree relative with colon polyps before age 60 years Referring MD: Diane Nagy Providers: Amos Campoverde M.D. Medicines: See the Anesthesia note for documentation of the administered medications Complications: No immediate complications. Estimated Blood Loss: Estimated blood loss was minimal. Procedure: The benefits, risks and alternatives of theprocedure and sedation were discussed and informed consentwas obtained. All questions were answered. Please referto the signed informed consent document in the medical record. The scope was passed under direct vision.The Colonoscope was introduced through the anus and advanced to the terminal ileum, with identificationof the appendiceal orifice and IC valve. Thecolonoscopy was performed without difficulty. The patient tolerated the procedure well. The quality of thebowel preparation was good. Findings: The perianal and digital rectal examinations were normal. The terminal ileum appeared normal. A 5 mm polyp was found in the sigmoid colon. The polyp was semi-pedunculated. The polyp was removed with a hot snare. Resectionand retrieval were complete. Three semi-sessile polyps were found in the transverse colon, hepatic flexure and ascending colon. The polyps were 2 to 3 mm in size. These polyps were removed with a jumbo cold forceps. Resection andretrieval were complete. Impression: - The examined portion of the ileum was normal. - One 5 mm polyp in the sigmoid colon, removed witha hot snare. Resected and retrieved. - Three 2 to 3 mm polyps in the transverse colon,at the hepatic flexure and in the ascending colon, removed with a jumbo cold forceps. Resected and retrieved. Recommendation: - Repeat colonoscopy date to be determined after pending pathology results are reviewed for surveillance based on pathology results. Amos Smith Amos Campoverde M.D. 01/13/2025 11:04:22 AM . Number of Addenda: 0 Note Initiated On: 01/13/2025 10:00 AM Recognized by the [employer] for promoting quality in endoscopy Amos Campoverde MD ENDOSCOPY PROCEDURES Final Result * HM COLONOSCOPY (01/13/2025 9:56 AM CDT) Scribed HM Colonoscopy Normal Shira Huddleston MD HEALTH MAINTENANCE Final Result * POCT hCG, urine (01/13/2025 9:27 AM CDT) HCG, ur, POC Negative Negative Lot Number [id number] QC Backgroud Clear Acceptable QC Control Line Acceptable Urine 01/13/2025 9:27 AM CDT Emilia Wynn MD POINT OF CARE TEST ORDERABLES Final Result * Screening Mammogram Bilateral W Gerardo (02/04/2024 2:34 PM CDT) Anatomical Region Laterality Modality Breast Bilateral Mammography Narrative 02/05/2024 10:01 AM CDT Mammogram Technique: Bilateral Digital Breast Tomosynthesis, Bilateral C-view 2D Screening mammogram. Views obtained: bilateral craniocaudal and bilateral mediolateral oblique. Computer Aided Detection was performed. Mammogram Findings: The present examination has been compared to prior imaging studies performed at [facility] on 10/31/2020, 11/08/2020 and 03/19/2022. The breasts are heterogeneously dense, which may obscure small masses. There are calcifications in both breasts. There are no significant changes from the prior study. There is no suspicious abnormality in either breast. Impression: There is no mammographic evidence of malignancy. Annual screening mammography is recommended. If supplemental screening is desired, breast MRI would be recommended in this patient with heterogeneously dense breasts. OVERALL FINAL ASSESSMENT: BI-RADS CATEGORY 2: Benign. Procedure Note Juliana Gutierres MD - 02/05/2024 Mammogram Technique: Bilateral Digital Breast Tomosynthesis, Bilateral C-view 2D Screening mammogram. Views obtained: bilateral craniocaudal and bilateral mediolateral oblique. Computer Aided Detection was performed. Mammogram Findings: The present examination has been compared to prior imaging studies performed at [facility] on 10/31/2020, 11/08/2020 and 03/19/2022. The breasts are heterogeneously dense, which may obscure small masses. There are calcifications in both breasts. There are no significantchanges from the prior study. There is no suspicious abnormality in either breast. Impression: There is no mammographic evidence of malignancy. Annual screening mammography is recommended. If supplemental screeningis desired, breast MRI would be recommended in this patient with heterogeneously dense breasts. OVERALL FINAL ASSESSMENT: BI-RADS CATEGORY 2: Benign. us Self Screening Mammogram IMG MAMMO PROCEDURES Fi nal Result from Last 3 Months or Most Recently Relevant to Health Maintenance Insurance [employer] [facility] [employer] Address: [address] [place] [address] [employer] Address: [address] [place] [address] Care Teams Manufacturing Quality Manager Relationship Specialty Start Date End Date Juan Srivastava Jr., MD [address] [place] [address] PCP - General Internal Medicine 04/06/24 Trinity Bustillo NP [address] [place] [id number] Nurse Practitioner Nurse Practitioner 03/19/22 Vipin Red MD [address] [facility] [address] [facility] [[email or web address] [address] [place] [address] Referring Physician Obstetrics and Gynecology 04/06/24
--- OUTSIDE RECORDS SUMMARY | 2025-04-06 04:23 | XMS_ITS | Clinical Summary ---
Author Organization [employer]igned [address] [place] [address] Phone Care Team Providers Care Meat Stringer Name Role Phone [facility], External Provider Primary Care Provider U navailable Allergies No known active allergies Medications fluticasone-aman meterol (ADVAIR DISKUS) 100-50 mcg/dose disk inhaler Take 1 Puff by inhalation 2 times daily. Active albuterol HFA 90 mcg inhaler Take 2 Puffs by inhalation every 4 hours as needed for Shortness of Breath. Active Junel .10/15, 21, 1.5-30 mg-mcg tablet TAKE 1 TABLET BY MOUTH EVERY DAY 1 Active cholecalciferol , Vitamin D3, 50 mcg (2,000 unit) Tablet Take 1 Tablet (2,000 Units) by mouth daily. 1 Active cetirizine (ZyrTEC) 10 mg tablet Take 1 Tablet (10 mg) by mouth daily. 1 2 Active levothyroxine 150 mcg tablet TAKE 1 TABLET BY MOUTH DAILY ON FRIDAY - FRIDAY AND 2 TABLETS ON FRIDAY - TAKE WITHOUT FOOD 104 Tablet 1 3 Active Active Problems Problem Noted Date Diagnosed Date Prediabetes 08/28/2021 Low vitamin D level 09/05/2020 Postsurgical hypothyroidism 09/16/2017 Thyroid cancer 09/12/2017 Resolved Problems Problem Noted Date Diagnosed Date Resolved Date Multinodular goiter 09/06/2017 09/17/19 18 Thyroid nodule 08/18/2017 09/06/2017 Family History Medical History Relation Name Comments Hypertension Father Prostate Cancer Father Thyroid Disease Maternal Grandmother Relation Name Status Comments Brother 1 Alive Brother 2 Alive Father Alive Maternal Grandmother Mother Alive Sister Alive Social History Tobacco Use Types Packs/Day Years Used Date Smoking Tobacco: Never Smokeless Tobacco: Never Alcohol Use Standard Drinks/Week Comments Yes 0 (1 standard drink = 0.6 oz pur e alcohol) occasion Comments No Sex and Gender Information Value Date Recorded Sex Assigned at Not on file Legal Sex Female 8:37 AM CDT Gender Identity Not on file Sexual Orientation Not on file Last Filed Vital Signs Vital Sign [place] Time Taken Comments Blood Pressure 110/70 09/05/2020 8:55 AM CDT Pulse 80 09/05/2020 8:55 AM CDT Temperature 36.4 C (97.5 F) 09/10/2017 7:10 AM CDT Respiratory Rate 18 09/10/2017 7:10 AM CDT Oxygen Saturation 100% 09/10/2017 7:10 AM CDT Inhaled Oxygen Concentration - - Weight 73.5 kg (162 lb) 09/05/2020 8:55 AM CDT Height 160 cm (5' 3) 09/05/2020 8:55 AM CDT Body Mass Index 28.7 09/05/2020 8:55 AM CDT Plan of Treatment Health Maintenance Due Date Last Done Comments DTAP/TDAP/TD VACCINES (1 - Tdap) 1999 HEPATITIS B VACCINES (1 of 3 - 19+ 3-dose series) 1999 HPV/Cotest (21-29) 2001 HPV VACCINES (1 - 3-dose SCDM series) 2007 CERVICAL CANCER SCREENING 2010 HPV/Cotest (30-65) 2010 PAP SMEAR 2010 BREAST CANCER SCREENING 11/08/2021 11/08/2020, 10/31 INFLUENZA VACCINE (#1) 2024 COLORECTAL SCREENING 2025 Colorectal Cancer Screening 2025 FIT-DNA Q 3 years 2025 FIT/FOBT Q 1 year 2025 Flex Sig/CT Colonography Q 5 years 2025 Insurance RX [employer] RX Member Subscriber Plan / Payer (Ef fective for All Dates) Name:Rosalind Bhakta Relation to Subscriber:Self Name:Rosalind Bhakta Payer ID:Not on file Type:RX Commercial Address: [address] Advance Directives For more information, please contact: [phone] * Full Code (Latest Code Status on File) Date Activated Date Inactivated Comments 09/09/2017 4:22 PM 09/10/2017 1:15 PM * Full Code Date Activated Date Inactivated Comments 09/09/2017 10:00 AM 09/09/2017 4:22 PM Care Teams Meat Stringer Relationship Specialty Start Date End Date [facility], External [place] [address] PCP - General 01/04/19
--- OUTSIDE RECORDS SUMMARY | 2025-04-06 04:23 | XMS_ITS ---
Author Organization [facility] [address] [facility] [address] [place] [address] Phone Care Team Providers Care Intrusion Analyst Name Role Phone Sjmm, External Provider Primary Care Provider U navailable Active Problems Problem Noted Date Diagnosed Date Prediabetes 08/28/2021 Low vitamin D level 09/05/2020 Postsurgical hypothyroidism 09/16/2017 Thyroid cancer 09/12/2017 Current Treatment and Therapy Plans No current plan information found. Past Treatment and Therapy Plans No past plan information found. Treatment Summaries Thyroid cancer (CMS/HCC)* Cancer Survivorship Care Plan Provided by [facility] on 08/25/18 General Information Patient Name: Rosalind Bhakta Patient : 1980 Care Team Medical Oncologist: N/A Surgeon: Dr. Charlie Grover - [phone] Radiation Oncologist: N/A Primary Care Physician: Ean Goetz MD, Cancer Diagnosis: Thyroid Cancer. Papillary thyroid carcinoma. Treatment Summary Chemotherapy N/A Radiation N/A Surgery Total Thyroidectomy Date: 09/09/17 Persistent symptoms or side effects at completion of treatment: no Types: Potential late effects of treatment(s): Surgical: delayed wound healing, infection/fever, hoarseness, dysphagia, pain at incision site, chronic pain. Cancer Survivors may experience issues with the area listed below. If you have any concerns in these or other areas, please speak with your doctors or nurses to find out how you can get help with them. Potential Areas of Concern Potential Areas of Concern Emotional and Mental Health Physical Functioning Memory or Concentration Loss Fatigue Insurance Issues Parenting Spiritual Issues Weight Changes School/Work Fertility Stopping Smoking Financial Advice or Assistance Sexual Functioning Resources Provided to Patient Referrals Provided: [employer] Program Follow-up and Survivorship Care Follow Up Care When / How Often? Coordinating Provider Endocrinology Visits: Every 6 mos. Due 10/04 Dr. Young Lab Tests: TSH, thyroglobulin as ordered Dr. Young Imaging: US head and neck as ordered Dr. Young Non cancer related preventive care Continue your routine visits to your primary care physician for preventative care. Bone health ?? DEXA every 2 years ?? Calcium with vitamin D ?? Weight bearing exercise Lung Cancer Screening ?? 55-77 years of age ?? 30 pack per year or more smoking history ?? Current Smoker or smoked within the last 15 years ?? No signs and symptoms of lung cancer ?? Smoked one pack of cigarettes per day for 30 years or two packs a day for 15 years ?? In generally good health Colon Cancer Screening ?? Screening colonoscopy starting at age 45 or as discussed with PCP ?? Stool guaiac tests ?? Eat fruits and vegetables Heart Health ?? Weight management ?? Cholesterol management ?? Blood sugar control ?? Blood pressure control Cervical Cancer Screening ?? Pap test as discussed with PCP Breast Cancer Screening ?? Mammograms as discussed with your PCP Call your doctor if you have any of these signs and symptoms: anorexia, appetite changes, bleeding - blood tinged sputum, bone pain, chest pain (non-pleuritic), chest pain (pleuritic), cough, dehydration, dizziness, dyspnea on exertion, fatigue, fever and chills, nausea, night sweats, shortness of breath and weight loss *Any new, unusual and/or persistent symptoms should be brought to the attention of your provider. RESOURCES [facility] organizations Cancer Support Community of [facility] cancer community office which include support groups (including a survivorship group), mentoring, exercise and yoga classes among other ways to get involved and connect with fellow survivors as well as resources for families and caregivers. Website: http://www.cancersupportstl.org/ [employer] at the [facility] A physical activity and wellness program designed for cancer survivors to help achieve well-being. Contact your local [facility] to get started. The program is free to join and lasts for 12 weeks. Visit the website to see a list of participating locations. Website: https://www.[facility].org/program/[facility] Cancer Information Center at [facility]???s [facility] Call or drop by to speak with a social services specialist or nurse navigator for questions about financial/food/housing assistance, counseling services, resources for wigs, low raw sugar cutter referral and general questions about diagnosis, treatment and survivorship. There is also a survivorship monthly support group that meets at [place]. Call for more information. Website for special events/classes: https://www.[facility]/practice/wcjtl-q-zmyyr-[facility]/cance l-jikxfyiy-sbw-special-events/ National nonprofit organizations [employer]/National Cancer Information Center [facility] provides cancer information and support to patients, families, and caregivers. It also supportsresearch, community, education, and advocacy and public policy issues Phone: 1-800-acs-2345 ( ) Website: www.cancer.org CancerCare Provides free, professional support services to anyone affected by cancer. CancerCare programs include counseling, education, financial assistance and practical help by trained oncology social workers and are free of charge. Phone: 0-121-324-HOPE ( ) Website: www.cancercare.org Cancer Hope Network Cancer Hope Network matches patients and families with trained volunteers who have recovered from asimilar cancer experience. Phone: 5-679-IOBTKDI ( ) Website: www.cancerhopenetwork.org Cancer Support Community Cancer support community is a national organization that provides support groups, stress reduction and cancer education workshops, nutrition guidance, exercise sessions and social events. Phone: 3-684-967-WELL ( ) Website: www.cancersupportcommunity.org National Coalition for Cancer Survivorship NCCS provides information and resources on cancer support, advocacy, and pgohvxa-js-jcwg issues to cancer survivors and loved ones. Phone: 8-426-UCSX-YES ( ) Website: www.canceradvocacy.org Patient Advocate Foundation [facility] provides education, legal counseling, and referrals to cancer patients and survivors. It specializes in matters related to managed care, insurance, financial issues, job discrimination and debt crisis. Phone: Website: www.patientadvocate.org [employer] Guidelines on Nutrition and Physical Activity For Cancer Prevention 1. Achieve and maintain a healthy weight. ??? Avoid weight gain during cancer treatment, whether you are at a healthy weight or overweight. ??? Weight loss after recovery from treatment may benefit survivors who are overweight or obese. 2. Be physically active. ??? Studies show that exercise is safe during cancer treatment, and can improve many aspects of health, including muscle strength, balance, fatigue, and depression. ??? Physical activity after diagnosis is linked to living longer and a reduced risk of the cancer returning among people living with cancer, including breast, colorectal, prostate, and ovarian cancer. ??? Aim for 30 min of exercise 5 days a week. 3. Eat a healthy diet, with an emphasis on fruits, vegetables, and whole grains. ??? The most health benefits are associated with a diet high in fruits, vegetables, whole grains, poultry, and fish, and low in refined grains, red meat and processed meat (such as hot dogs), desserts, high-fat dairy products and Faroese fries. Most of the studies about cancer and diet have focused on breast cancer. ??? Studies show that taking vitamins, herbs and other nutritional supplements often does not help cancer patients live longer, and may even shorten life. Before taking any supplement, discuss it with your health care provider. 4. Don't smoke 5. If you drink alcohol, limit your intake. ??? Drink no more than 1 drink per day for women or 2 per day for men. 6. Sunscreen use ??? Exposure to ultraviolet rays is the leading cause of skin cancer. It is important to protect your skin. Sun damage builds up over time. It is important to use sunscreen every day. You should use a sunscreen that is water resistant and has an SPF of 30 or above. Remember to also protect your lips and eyes. 7. Routine blood pressure, cholesterol, and glucose monitoring. ??? While many cancer survivors worry about their cancer coming back most cancer survivors are morelikely to develop other chronic medical conditions such as high blood pressure, heart disease, and diabetes. Be sure to start and/or continue to see your primary care physician regularly. 8. Vaccines ??? The flu is a respiratory infection caused by viruses. While most people with the flu get betteron their own it can be serious. It can cause many medical complications and sometimes even . Be sure to get an annual influenza vaccine (flu shot). ??? Pneumococcal diseases can cause serious infections in the lungs and bloodstream. A pneumococcalvaccine is recommended for all adults 65 years of age and older. It is also recommended for some younger adults who have chronic health conditions. Be sure and check with your doctor if you need a pneumococcal vaccine. 9. Routine Dental Care ??? Your oral health may be more important than you think. It can contribute to various medical diseases and conditions. Daily oral hygiene helps decrease our risk of tooth decay and gum disease. Be sure to brush twice a day, floss daily, and see your dentist regularly for checkups and cleanings. 10. Eye Health ??? Our eyes are called the windows to the world. Make sure you take good care of your eyes. Adultsshould have their eyes examined every 2 years until age 60. We should then undergo eye exams yearly. Individuals with contact lenses, glasses, or who are at high risk for eye problems (i.e. diabetes,family history of eye disease) should be seen more frequently. Important caution: this is a summary document whose purpose is to review the highlights of the cancer treatment for this patient. This does not replace information available in the medical record, a complete medical history provided by the patient, examination and diagnostic information, or educational materials that describe strategies for coping with cancer and cancer therapies in detail. Both medical science and an individual???s health care needs change, and therefore this document is current only as of the date of preparation. This summary document does not prescribe or recommend any particular medical treatment or care for cancer or any other disease and does not substitute for the independent medical judgment of the treating professional. Resolved Problems Problem Noted Date Diagnosed Date Resolved Date Multinodular goiter 09/06/2017 09/17/19 18 Thyroid nodule 08/18/2017 09/06/2017
--- OUTSIDE RECORDS SUMMARY | 2025-04-06 04:47 | XMS_ITS | Clinical Summary ---
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 Gender Identity Not on file Sexual Orientation Not on file Plan of Treatment Health Maintenance Due Date Last Done Comments Cervical Cancer Screening Pa p Smear (Age 30 to 64) Every 3 Years 1980 Annual Physical 1983 Hepatitis C 1998 DTaP, Tdap and Td Vaccines ( 1 - Tdap) 1999 Hepatitis B Vaccines (1 of 3 - 19+ 3-dose series) 1999 HPV Vaccines (1 - 3-dose SCD M series) 2007 Cervical Cancer Screening Pa p with HPV Testing (Age 30 to 64) Every 5 Years 2010 Cervical Cancer Screening with HPV 2010 Mammogram Screening 2020 COVID-19 Vaccine ( - 2024-2 6 season) 2025 Influenza Adult (#1) 2025 Hepatitis A Vaccines Aged Out No long er eligible based on patient's age to complete this topic Meningococcal B Vaccine Aged Out No l onger eligible based on patient's age to complete this topic Meningococcal Vaccine Aged Out No ashanti alicia eligible based on patient's age to complete this topic Pneumococcal Vaccine: Pediat rics (0 to 5 Years) and At-Risk Patients (6 to 49 Years) Aged Out No longer eligible b ased on patient's age to complete this topic RSV Immunizations Under 20 Months Aged Out No longer eligible based on patient's age to complete this topic
== END 2025-04-05 20:39 | disposition home or self-care (01) ==
PROVIDERS: Emergency Provider Emergency Medicine; PCP Hospitalist
DX: B34.9 Viral infection, unspecified (principal); G43.909 Migraine, unspecified, not intractable, without status migrainosus; Z85.850 Personal history of malignant neoplasm of thyroid; Z20.822 Contact with and (suspected) exposure to COVID-19
CPT/HCPCS: 87636; 96361; 96374; 96375; 99284; J0780; J1200; J1885; J7120